=== PATIENT | male | born 2000 | race Caucasian/White ===

== ENCOUNTER 2024-05-15 22:22 | Emergency (ER) | payer MEDICAID, OTHER ==
[2024-05-15] MEDS: Diphtheria,Pertussis(Acell),Tetanus Vaccine 0.5 ML Syringe IM ONE (23:14)
== END 2024-05-15 23:23 | disposition home or self-care (01) ==
LOC: FB.ED 22:22
DX: S61.211A Laceration without foreign body of left index finger without damage to nail, initial encounter (principal); W45.8XXA Other foreign body or object entering through skin, initial encounter; Z23 Encounter for immunization
CPT/HCPCS: 12001; 90471; 90715; 99282-25